=== PATIENT | female | born 1995 | race Caucasian/White ===

== ENCOUNTER 2016-04-08 10:03 | Emergency (ER) | payer MEDICAID | END 2016-04-08 15:34 | disposition home or self-care (01) | LOC: ER 10:26 | DX: N30.00 Acute cystitis without hematuria (principal); N76.0 Acute vaginitis; F17.210 Nicotine dependence, cigarettes, uncomplicated | CPT/HCPCS: 36415; 80053; 81001; 83690; 84702; 84703; 85025; 85610; 87088; 87491; 87591; 87800 ==